=== PATIENT | female | born 1995 | race Caucasian/White ===

== ENCOUNTER 2017-02-01 04:34 | Emergency (ER) | payer MEDICAID ==
[~2017-02-01] VITALS: Ht 152.4 cm; Wt 73.0 kg
[2017-02-01 04:38] VITALS: Ht 152.4 cm; Wt 73.0 kg
[2017-02-01] MEDS ORDERED: ONDANSETRON 4 MG INJ IV STA ×2 (05:11→06:33)
[2017-02-01] MEDS ORDERED: FAMOTIDINE 20 MG INJ IV STA (05:11)
[2017-02-01] MEDS ORDERED: morphine 4 MG/ML VIAL IV STA (05:11)
[2017-02-01] MEDS ORDERED: SOD CHLORIDE 0.9% 1,000 ML IV STA ×2 (05:11→06:33)
[2017-02-01 05:18] LABS: URINE BLOOD (Dip) POC 2+ (NEGATIVE)
[2017-02-01 05:40] LABS: ADD SCAN DIFF NO
[2017-02-01 05:42] LABS: ABNORMAL IP MESSAGE 1; BASOPHIL # 0.1 10^3/ul (0.0-0.1); BASOPHILS % 0.4 % (0.0-2.0); HEMATOCRIT 43.3 % (37.0-47.0); HEMOGLOBIN 14.9 g/dl (12.0-16.0); LYMPHOCYTES # 0.5 10^3/ul (0.8-2.9); LYMPHOCYTES % 3.5 % (15.0-51.0); MEAN CORPUSCULAR HEMOGLOBIN 29.1 pg (29.0-33.0); MEAN CORPUSCULAR HGB CONC 34.4 g/dl (32.0-37.0); MEAN CORPUSCULAR VOLUME 84.6 fl (82.0-101.0); MEAN PLATELET VOLUME 9.2 fl (7.4-10.4); MONOCYTE # 0.6 10^3/ul (0.3-0.9); MONOCYTES % 3.9 % (0.0-11.0); NEUTROPHIL # 13.9 10^3/ul (1.6-7.5); NEUTROPHILS % 91.9 % (39.0-77.0); PLATELET COUNT 382 10^3/UL (140-415); RED BLOOD COUNT 5.12 10^6/ul (4.20-5.40); RED CELL DISTRIBUTION WIDTH 12.9 % (11.5-14.5); WHITE BLOOD COUNT 15.1 10^3/ul (4.8-10.8)
[2017-02-01 05:50] LABS: ADD UMIC YES; UR ASCORBIC ACID NEGATIVE (NEGATIVE); UR BACTERIA FEW /HPF (NONE SEEN); UR BILIRUBIN (Dip) NEGATIVE (NEGATIVE); UR BLOOD (Dip) 2+ mg/dL (NEGATIVE); UR CLARITY CLOUDY (CLEAR); UR COLOR YELLOW (YELLOW); UR GLUCOSE (Dip) NEGATIVE (NEGATIVE); UR KETONES (Dip) 2+ mg/dL (NEGATIVE); UR LEUKOCYTE ESTERASE (Dip) 1+ Leu/ul (NEGATIVE); UR MUCUS MANY /HPF (NONE SEEN); UR NITRITE (Dip) NEGATIVE (NEGATIVE); UR RBC 14 /HPF (0-5); UR SPECIFIC GRAVITY (Dip) 1.031 (1.003-1.030); UR TOTAL PROTEIN (Dip) 1+ mg/dl (NEGATIVE); UR UROBILINOGEN (Dip) NEGATIVE (NEGATIVE)
--- NOTE | 2017-02-01 05:56 | RADRPT ---
PROCEDURE: ULTRASOUND LIMITED ABDOMEN CLINICAL INDICATION: 21-year-old female with abdominal pain. TECHNIQUE: Multiple sonographic of the right upper quadrant of the abdomen were obtained. The imag es were reviewed on a PACS workstation. COMPARISON: None. FINDINGS: The pancreas is partially visualized and is otherwise without abnormal echogenicity. The liver displays normal echogenicity. The liver measures 16.9 cm in length. No evidence of intrah epatic biliary ductal dilatation is seen. The portal and hepatic veins are unremarkable. The gallbladder demonstrates no wall thickening, sludge, nor stones. No pericholecystic fluid is see n. The common bile duct measures 4.3 mm and is not dilated. The right kidney displays normal echogenicity. The right kidney measures 10.5 cm in length. No calie ctasis or hydronephrosis is seen. No free fluid is seen. IMPRESSION: Unremarkable right upper quadrant abdominal ultrasound. .Kenrick York MD, MD Date Time Electronically viewed and signed by .Kenrick York MD, on 02/01/2017 05:56 .M/
[2017-02-01 06:14] LABS: UR SQUAMOUS EPITHELIAL CELL MODERATE /HPF (FEW)
[2017-02-01 06:17] LABS: ALBUMIN 5.2 g/dl (3.3-4.9); ALBUMIN/GLOBULIN RATIO 1.3; BILIRUBIN,INDIRECT 0.8 mg/dl (0-1.1); BILIRUBIN,TOTAL 0.8 mg/dl (0.2-1.3); CALCIUM 10.7 mg/dl (8.4-10.2); CREATININE 0.78 mg/dl (0.44-1.00); POTASSIUM 4.5 mmol/L (3.5-5.1); TOTAL PROTEIN 9.2 g/dl (6.1-8.1)
[2017-02-01] MEDS ORDERED: KETOROLAC 15 MG INJ IV STA (06:33)
--- NOTE | 2017-02-01 06:41 | ERD ---
ER Documentation Chief Complaint Date/Time DATE: 02/01/17 TIME: 06:35 Chief Complaint abd pain since 10pm. n/v/d. unable to quantify emesis episodes HPI 21-year-old female with no significant past medical history who presents to the emergency room for nausea vomiting and diarrhea. She describes since around 10 PM multiple episodes of nonbloody nonbilious emesis with associated looser stools. He describes diffuse abdominal cramping that seems to be worse when she is vomiting. She denies any recent travel, sick contacts or antibiotics, no abdominal surgical history. Patient denies any fevers or chills, no shortness of breath or chest pain. ROS All systems reviewed and are negative except as per history of present illness. Medications Home Meds Active Scripts Dicyclomine Hcl* (Bentyl*) 10 Mg Capsule, 10 MG PO QID Y for abdominal cramping , #20 CAP Prov:SHERIF NEFF MD 02/01/17 Ondansetron (Ondansetron Odt) 4 Mg Tab.rapdis, 4 MG PO Q6H Y for NAUSEA AND/OR VOMITING, #30 TAB Prov:SHERIF NEFF MD 02/01/17 Allergies Allergies: Coded Allergies: No Known Allergy (Unverified , 02/01/17) PMhx/Soc History of Surgery: No Anesthesia Reaction: No Hx Neurological Disorder: No Hx Respiratory Disorders: No Hx Cardiac Disorders: No Hx Psychiatric Problems: No Hx Miscellaneous Medical Probl: No Hx Alcohol Use: Yes Hx Substance Use: No Hx Tobacco Use: No Smoking Status: Never smoker FmHx Family History: No diabetes Physical Exam Vitals Vital Signs Date Time Temp Pulse Resp B/P Pulse Ox O2 Delivery O2 Flow Rate FiO2 02/01/17 07:19 73 16 115/83 100 Room Air 02/01/17 04:38 98.1 101 20 121/90 100 Physical Exam General: Well developed, well nourished, no acute distress Head: Normocephalic, atraumatic. Eyes: Pupils equally reactive, EOM intact ENT: Moist mucous membranes Neck: Supple, no lymphadenopathy Respiratory: Lungs clear bilaterally, no distress Cardiovascular: RRR, no murmurs, rubs, or gallops Abdominal: Soft, mild diffuse tenderness without rebound or guarding, no tenderness to McBurney's point, no Roger sign, non-distended, no peritoneal signs : Deferred MSK: No edema, no unilateral swelling, 5/5 strength Neurologic: Alert and oriented, moving all extremities, normal speech, no focal weakness, no cerebellar signs Skin: No rash Psych: Normal mood Result Diagram: 02/01/17 0520 02/01/17 0520 Results 24 hrs Laboratory Tests Test 02/01/17 05:20 02/01/17 05:22 White Blood Count 15.110^3/ul Red Blood Count 5.1210^6/ul Hemoglobin 14.9g/dl Hematocrit 43.3% Mean Corpuscular Volume 84.6fl Mean Corpuscular Hemoglobin 29.1pg Mean Corpuscular Hemoglobin Concent 34.4g/dl Red Cell Distribution Width 12.9% Platelet Count 64413^3/UL Mean Platelet Volume 9.2fl Neutrophils % 91.9% Lymphocytes % 3.5% Monocytes % 3.9% Eosinophils % 0.0% Basophils % 0.4% Nucleated Red Blood Cells % 0.0/100WBC Neutrophils # 13.910^3/ul Lymphocytes # 0.510^3/ul Monocytes # 0.610^3/ul Eosinophils # 0.010^3/ul Basophils # 0.110^3/ul Nucleated Red Blood Cells # 0.010^3/ul Urine Color YELLOW Urine Clarity CLOUDY Urine pH 6.0 Urine Specific [place] 1.031 Urine Ketones 2+mg/dL Urine Nitrite NEGATIVEmg/dL Urine Bilirubin NEGATIVEmg/dL Urine Urobilinogen NEGATIVEmg/dL Urine Leukocyte Esterase 1+Abelardo/ul Urine Microscopic RBC 14/HPF Urine Microscopic WBC 3/HPF Urine Squamous Epithelial Cells MODERATE/HPF Urine Bacteria FEW/HPF Urine Mucus MANY/HPF Urine Hemoglobin 2+mg/dL Urine Glucose NEGATIVEmg/dL Urine Total Protein 1+mg/dl Sodium Level 146mmol/L Potassium Level 4.5mmol/L Chloride Level 106mmol/L Carbon Dioxide Level 21mmol/L Anion Gap 24 Blood Urea Nitrogen 18mg/dl Creatinine 0.78mg/dl Glucose Level 161mg/dl Calcium Level 10.7mg/dl Total Bilirubin 0.8mg/dl Direct Bilirubin 0.00mg/dl Indirect Bilirubin 0.8mg/dl Aspartate Amino Transf (AST/SGOT) 47IU/L Alanine Aminotransferase (ALT/SGPT) 42IU/L Alkaline Phosphatase 80IU/L Total Protein 9.2g/dl Albumin 5.2g/dl Globulin 4.00g/dl Albumin/Globulin Ratio 1.30 Lipase 27U/L Bedside Urine pH (LAB) 6.5 Bedside Urine Protein (LAB) 2+ Bedside Urine Glucose (UA) Negative Bedside Urine Ketones (LAB) 2+ Bedside Urine Blood 2+ Bedside Urine Nitrite (LAB) Negative Bedside Urine Leukocyte Esterase (L Trace Current Medications Medications (Trade) Dose Ordered Sig/Stefan Route PRN Reason Start Time Stop Time Status Last Admin Dose Admin Sodium Chloride (NS) 1,000 ml @ 1,000 mls/hr Q1H STAT IV 02/01/17 05:11 02/01/17 06:10 DC 02/01/17 05:30 Morphine Sulfate (morphine) 4 mg ONCE STAT IV 02/01/17 05:11 02/01/17 05:26 DC 02/01/17 05:30 Ondansetron HCl (Zofran Inj) 4 mg ONCE STAT IV 02/01/17 05:11 02/01/17 05:26 DC 02/01/17 05:30 Famotidine 20 mg 20 mg ONCE STAT IV 02/01/17 05:11 02/01/17 05:26 DC 02/01/17 05:30 Sodium Chloride (NS) 1,000 ml @ 1,000 mls/hr Q1H STAT IV 02/01/17 06:33 02/01/17 07:32 02/01/17 06:40 Ondansetron HCl (Zofran Inj) 4 mg ONCE STAT IV 02/01/17 06:33 02/01/17 06:35 DC 02/01/17 06:41 Ketorolac Tromethamine (Toradol) 15 mg ONCE STAT IV 02/01/17 06:33 02/01/17 06:35 DC 02/01/17 06:40 Dicyclomine HCl (Bentyl) 10 mg ONCE ONCE IM 02/01/17 07:00 02/01/17 07:01 DC 02/01/17 07:04 Procedures/MDM EKG, MONITORS, & DIAGNOSTIC IMAGING: Ultrasound gallbladder: No acute process noted by radiologist LAB INTERPRETATION: Slight leukocytosis with left shift, mild ketonuria, no hepatobiliary obstruction on LFTs MEDICAL DECISION MAKING: The patient presents with nausea vomiting and diarrhea that is most consistent with likely viral process such as gastroenteritis. The patient has a benign abdominal exam without focal tenderness therefore very low clinical concern for acute appendicitis, choledocholithiasis, acute cholecystitis. The patient is not ruling out ectopic , very low clinical concern for ovarian cyst or torsion given predominance of GI symptoms. The patient had laboratory testing and diagnostic imaging ordered prior to my arrival. The patient's laboratory blood work shows mild leukocytosis that would be expected in this setting. I do not believe the patient requires CT imaging of the abdomen and pelvis given nonfocal exam, low concern for acute intra-abdominal process and better alternative diagnosis. The risks of radiation outweigh the benefits. I believe the patient will benefit from symptom care, rehydration and reevaluation with likely outpatient treatment and expectant management. ER COURSE: The patient was given IV fluids and pain medication with mild improvement. She was given a repeat dose of pain medication nausea medication and IV fluids with a dramatic improvement. I discussed return precautions with the patient including fevers, migratory pain or pain to the right lower quadrant. I discussed expectant management of disease course over the next 2-3 days. I encouraged oral hydration. The patient verbalized understanding. I kept the patient and/or family informed of laboratory and diagnostic imaging results throughout the emergency room course. DISPOSITION PLAN: We discussed follow up with the patient's primary care doctor within 24 to 48 hours as needed. We also discussed return to the emergency room for worsening symptoms or worsening condition. Outpatient referral: None required Discharge Medications: Shirlenefrromeo, Bentyl Departure Diagnosis: Primary Impression: Abdominal pain Abdominal location: generalized Qualified Code: R10.84 - Generalized abdominal pain Additional Impressions: Nausea vomiting and diarrhea Leukocytosis Leukocytosis type: unspecified Qualified Code: D72.829 - Leukocytosis, unspecified type Condition: Stable SHERIF NEFF MD Feb 01, 2017 06:41
[2017-02-01] MEDS ORDERED: DICYCLOMINE 20 MG INJ IM ONE (07:00)
[2017-02-01 07:19] VITALS: BP 115/83; PULSE 73; RESP 16
[2017-02-01] MEDS ORDERED: ONDA4TAB14 PO (07:20)
[2017-02-01] MEDS ORDERED: DICY10CA60 PO (07:20)
== END 2017-02-01 08:30 | disposition home or self-care (01) ==
LOC: E/R 04:34
DX: R10.84 Generalized abdominal pain (principal); R11.2 Nausea with vomiting, unspecified; R19.7 Diarrhea, unspecified; D72.829 Elevated white blood cell count, unspecified
CPT/HCPCS: 36415; 76705; 80053; 81001; 83690; 85025; 96372; 96374; 96375; 96376; J0500; J1885; J2270; J2405; J7030; Z7502; Z7610; 81003